=== PATIENT | male | born 1970 | race African-American/Black ===

== ENCOUNTER 2017-09-02 15:18 | Inpatient (IN) | payer OTHER ==
[~2017-09-02] VITALS: Ht 177.8 cm; Wt 69.6 kg
[2017-09-02] MEDS ORDERED: MORPHINE SULFATE 4 MG/ML CPJ (NOT FOR IM USE) IV STA (16:06)
[2017-09-02] MEDS ORDERED: ASPIRIN 81MG TABLET PO STA (16:06)
[2017-09-02 16:12] LABS: BASOPHILS % 1.2 % (0.0-2.0); EOSINOPHILS % 1.4 % (0.0-5.0); HEMATOCRIT. 41.3 % (42.0-52.0); HEMOGLOBIN. 13.9 g/dL (14.0-18.0); LYMPHOCYTES % 40.4 % (20.0-50.0); MEAN CORPUSCULAR HEMOGLOBIN 30.2 pg (28.0-32.0); MEAN CORPUSCULAR VOLUME 89.6 fL (80.0-94.0); MEAN PLATELET VOLUME 8.1 fl (7.4-10.4); PLATELET 244 x1000/uL (130-400); RED BLOOD CELL COUNT 4.61 mill/uL (4.7-6.1)
[2017-09-02] MEDS ORDERED: NITROGLYCERIN 0.4MG TABLET SL SL PRN (16:15)
[2017-09-02 16:16] LABS: CHLORIDE 104 mEq/L (98-107)
[2017-09-02 17:33] LABS: D-DIMER < 0.19 mg/L FEU (<0.50); INR 1.2; PARTIAL THROMBOPLASTIN TIME 28.7 sec (23.4-31.0); PROTHROMBIN TIME 12.2 sec (9.4-11.6)
[2017-09-02] MEDS ORDERED: MORPHINE SULFATE 4 MG/ML CPJ (NOT FOR IM USE) IV ONE (21:00)
[2017-09-02 22:00] VITALS: BP 144/66
[2017-09-02 22:05] VITALS: BP 144/66
[2017-09-02] MEDS ORDERED: HYDROMORPHONE HCL/PF 2MG/ML CPJ IV PRN (22:15)
[2017-09-02] MEDS ORDERED: LIDOCAINE 5% PATCH TOP SCH (23:30)
[2017-09-03 01:29] VITALS: BP 140/80
[2017-09-03] MEDS: MORPHINE SULFATE 4 MG/ML CPJ (NOT FOR IM USE) IV PRN ×2 (01:32→08:07)
[2017-09-03 01:58] LABS: CREATINE KINASE MB FRACTION 0.5 ng/mL (0.5-3.6)
[2017-09-03] MEDS ORDERED: CLONIDINE 0.1MG TABLET PO PRN (02:45)
[2017-09-03 04:00] VITALS: BP 130/71
[2017-09-03] MEDS: CARISOPRODOL 350 MG TABLET PO PRN ×2 (05:35→11:59)
[2017-09-03 06:42] LABS: CREATINE KINASE MB FRACTION 0.7 ng/mL (0.5-3.6)
[2017-09-03 12:23] VITALS: BP 128/71
== END 2017-09-03 12:35 | disposition home or self-care (01) | DRG 384 ==
LOC: ER 15:18 → 5WST 20:33 → EDBEDREQ 20:38 → ENRESERV 20:49 → SUPCPDRO 21:45
PROVIDERS: ADMIT Internal Medicine Critical Care Medicine; ATTEND Internal Medicine Critical Care Medicine
DX: T14.8XXA Other injury of unspecified body region, initial encounter (principal); F12.90 Cannabis use, unspecified, uncomplicated; R07.89 Other chest pain; S29.011A Strain of muscle and tendon of front wall of thorax, initial encounter; X58.XXXA Exposure to other specified factors, initial encounter; Y93.89 Activity, other specified; Y92.89 Other specified places as the place of occurrence of the external cause; Y99.8 Other external cause status; Z87.828 Personal history of other (healed) physical injury and trauma
CPT/HCPCS: 36415; 71045; 80053; 82553; 83690; 83880; 84484; 85025; 85379; 85610; 85730; 93005; 96374; 96375; 99285; J2270

== ENCOUNTER 2021-06-27 22:56 | Emergency (ER) | payer MEDICAID, OTHER ==
[~2021-06-27] VITALS: Ht 177.8 cm; Wt 75.5 kg
[2021-06-27] MEDS ORDERED: KETOROLAC 60MG/2ML VIAL IM STA (23:56)
[2021-06-28 00:14] VITALS: BP 131/59
[2021-06-28] MEDS ORDERED: CYCL5TAB PO (00:37)
[2021-06-28] MEDS ORDERED: NAPR-681 PO (00:37)
== END 2021-06-28 00:59 | disposition home or self-care (01) ==
LOC: ER 22:56
DX: S39.012A Strain of muscle, fascia and tendon of lower back, initial encounter (principal); W10.8XXA Fall (on) (from) other stairs and steps, initial encounter; Y93.89 Activity, other specified; Y92.89 Other specified places as the place of occurrence of the external cause; Y99.8 Other external cause status; F12.10 Cannabis abuse, uncomplicated
CPT/HCPCS: 72100; 96372; 99283; J1885

== ENCOUNTER 2022-08-25 07:43 | Emergency (ER) | payer MEDICAID, OTHER ==
[~2022-08-25] VITALS: Ht 172.7 cm; Wt 77.3 kg
[~2022-08-25 07:43] MED LIST: CYCL5TAB PO; NAPR-681 PO
[2022-08-25 07:48] VITALS: O2SAT 100
[2022-08-25] MEDS ORDERED: IBUPROFEN 600MG TABLET PO ONE (08:15)
[2022-08-25] MEDS ORDERED: KETOROLAC 30MG/ML VIAL IV ONE (08:30)
[2022-08-25] MEDS ORDERED: KETOROLAC 60MG/2ML VIAL IM ONE (08:30)
[2022-08-25] MEDS ORDERED: IBUP-2029 PO (09:17)
[2022-08-25 09:37] VITALS: BP 118/76; PULSE 68; RESP 16; TEMP 98.3
== END 2022-08-25 09:40 | disposition home or self-care (01) ==
LOC: ER 07:54
DX: M54.2 Cervicalgia (principal); F12.10 Cannabis abuse, uncomplicated
CPT/HCPCS: 72040; 96372; 99283; J1885; Z7610